=== PATIENT | female | born 1950 | race Caucasian/White ===

== ENCOUNTER → 2017-11-30 | Outpatient (CLI) | payer MEDICARE, BC ==
--- NOTE | 2017-12-01 10:01 | ECHOF ---
Referral Reason:R01.1 Cardiac murmer MEASUREMENTS -------- HEIGHT: 162.6 cm WEIGHT: 90.7 kg BP: IVSd: 1.3 cm (0.6 - 1.1) LVIDd: 2.7 cm (3.9 - 5.3) LVPWd: 1.4 cm (0.6 - 1.1) IVSs: 1.6 cm LVIDs: 1.5 cm LVPWs: 1.5 cm Ao Diam: 2.3 cm (2.0 - 3.7) AV Cusp: 1.1 cm (1.5 - 2.6) LA Diam: 3.0 cm (2.7 - 3.8) MV EXCURSION: 9.718 mm (> 18.000) MV EF SLOPE: 32 mm/s (70 - 150) EPSS: 0.5 cm MV E Rei: 0.85 m/s MV DecT: 181 ms MV A Rei: 0.78 m/s MV E/A Ratio: 1.10 AV maxP.55 mmHg AV meanP.96 mmHg RAP: 5.00 mmHg RVSP: 22.72 mmHg FINDINGS -------- Sinus rhythm. This was a technically difficult study with suboptimal apical views. The left ventricular size is normal. There is mild concentric left ventricular hypertrophy. Overa ll left ventricular systolic function is normal with, an EF between 55 - 60 %. The right ventricle is normal in size and function. The left atrium is normal in size. The right atrium is normal in size. Aortic valve is trileaflet and is moderately thickened. There is mild aortic stenosis present. Pe ak/mean gradient across the Aortic Valve is 19.55mmHg / 11.96mmHg. Mild mitral regurgitation is present. Mild tricuspid regurgitation present. The right ventricular systolic pressure, as measured by Doppl er, is 22.72mmHg. There is no pulmonic regurgitation present. The aortic root size is normal. There is no pericardial effusion. CONCLUSIONS -------- 1. Sinus rhythm. 2. This was a technically difficult study with suboptimal apical views. 3. There is mild concentric left ventricular hypertrophy. 4. Overall left ventricular systolic function is normal with, an EF between 55 - 60 %. 5. The left atrium is normal in size. 6. Aortic valve is trileaflet and is moderately thickened. 7. There is mild aortic stenosis present. 8. Peak/mean gradient across the Aortic Valve is 19.55mmHg / 11.96mmHg. 9. Mild mitral regurgitation is present. 10. Mild tricuspid regurgitation present. 11. The right ventricular systolic pressure, as measured by Doppler, is 22.72mmHg. 12. There is no pulmonic regurgitation present. 13. The aortic root size is normal. 14. There is no pericardial effusion. CUTTER GRINDER OPERATOR: Arti He RDCS
== END | disposition home or self-care (01) ==
LOC: RADECHMAIN 15:06
PROVIDERS: ATTEND Internal Medicine
DX: I08.1 Rheumatic disorders of both mitral and tricuspid valves (principal)
CPT/HCPCS: 93306

== ENCOUNTER → 2021-12-26 | Outpatient (CLI) | payer MEDICARE, BC ==
--- NOTE | 2021-12-27 14:14 | MM ---
Reason for exam: screening (asymptomatic). Last mammogram was performed 2 years and 8 months ago. History: Patient is postmenopausal and is nulliparous. Took hormonal contraceptives for 3 years. Physical Findings: A clinical breast exam by your physician is recommended on an annual basis and results should be correlated with mammographic findings. MG 3D Screening Mammo W/Cad Bilateral CC and MLO view(s) were taken. XCCL view(s) were taken of the right breast. Prior study comparison: April 27, 2019, bilateral MG 3d screening mammo w/cad. August 15, 2016, bilateral MG 3d screening mammo w/cad. There are scattered fibroglandular densities. No significant changes when compared with prior studies. ASSESSMENT: Benign, BI-RAD 2 RECOMMENDATION: Routine screening mammogram of both breasts in 1 year.
== END | disposition home or self-care (01) ==
LOC: RADMAMWWP 09:33
PROVIDERS: ATTEND Family Medicine
DX: Z12.31 Encounter for screening mammogram for malignant neoplasm of breast (principal); Z78.0 Asymptomatic menopausal state
CPT/HCPCS: 77063; 77067

== ENCOUNTER → 2022-08-04 | Outpatient (CLI) | payer MEDICARE, BC ==
--- NOTE | 2022-08-06 14:07 | CA ---
Transthoracic Echo Report Name: Suzan Ashraf Age: 71 Gender: F : 1950 Exam Date: 08/04/2022 11:40 Exam Location: [place] [facility] Ht (in): 62 Wt (lb): 140 Ordering Physician: Shyam Munson DO Attending/Referring Phys: Conservation Agent Susy Cabrera, LAMBERTO Procedure CPT: Indications: I35.0 aortic valve stenosis Cardiac Hx: Technical Quality: Fair Contrast 1: Total Dose (mL): Contrast 2: Total Dose (mL): MEASUREMENTS (Male / Female) Normal Values 2D ECHO LV Diastolic Diameter PLAX 3.9 cm 4.2 - 5.9 / 3.9 - 5.3 cm LV Systolic Diameter PLAX 2.3 cm IVS Diastolic Thickness 1.1 cm 0.6 - 1.0 / 0.6 - 0.9 cm LVPW Diastolic Thickness 1.4 cm 0.6 - 1.0 / 0.6 - 0.9 cm LV Relative Wall Thickness 0.6 RV Internal Dim ED PLAX 2.9 cm LA Systolic Diameter LX 3.0 cm 3.0 - 4.0 / 2.7 - 3.8 cm M-MODE Aortic Root Diameter MM 2.4 cm LA Systolic Diameter MM 3.1 cm LA Ao Ratio MM 1.3 MV E Point Septal Separation 0.1 cm AV Cusp Separation MM 1.2 cm DOPPLER AV Peak Velocity 326.5 cm/s AV Peak Gradient 42.6 mmHg AV Mean Velocity 244.9 cm/s AV Mean Gradient 28.6 mmHg AV Velocity Time Integral 72.8 cm LVOT Peak Velocity 102.9 cm/s LVOT Peak Gradient 4.2 mmHg MV Area PHT 3.6 cm??? Mitral E Point Velocity 61.1 cm/s Mitral A Point Velocity 97.6 cm/s Mitral E to A Ratio 0.6 MV Deceleration Time 213.2 ms FINDINGS Left Ventricle Left ventricular ejection fraction is estimated at 55 %. Mildly increased left ventricular wall thickness. Right Ventricle Normal right ventricular size and function. Right Atrium Normal right atrial size. Left Atrium Normal left atrial size. Mitral Valve Mitral valve thickened. Mild mitral regurgitation. Aortic Valve Moderate aortic stenosis with a peak velocity of 3.5 m/s, peak gradient 43 mmHg, mean gradient 29 mmHg, Tricuspid Valve Structurally normal tricuspid valve. Mild tricuspid regurgitation. Pulmonic Valve Structurally normal pulmonic valve. Pericardium Normal pericardium. Aorta Normal size aortic root and proximal ascending aorta. CONCLUSIONS Mild left ventricular wall thickness Mild mitral regurgitation Moderate aortic stenosis Mild tricuspid regurgitation No pericardial effusion Previewed by: Dr. Frank De Luna DO (Electronically Signed) Final Date: 05 August 2022 09:05
== END | disposition home or self-care (01) ==
LOC: RADECHMAIN 11:18
PROVIDERS: ATTEND Family Medicine
DX: I08.3 Combined rheumatic disorders of mitral, aortic and tricuspid valves (principal)
CPT/HCPCS: 93306

== ENCOUNTER → 2023-01-08 | Outpatient (CLI) | payer MEDICARE, BC ==
--- NOTE | 2023-01-08 11:46 | MM ---
Reason for Exam: Screening (asymptomatic). Last screening mammogram was performed 12 month(s) ago. Patient History: Menarche at age 15. Patient has no children. Postmenopausal. Patient used Hormonal Contraceptives for 3 years. Risk Values: Hanny 5 year model risk: 1.9%. NCI Lifetime model risk: 5.6%. Prior Study Comparison: 12/15/2014 Bilateral Screening Mammogram, [facility]. 08/15/2016 Bilateral Screening Mammogram, [facility]. 04/27/2019 Bilateral Screening Mammogram, [facility]. 12/26/2021 Bilateral Screening Mammogram, [facility]. Tissue Density: There are scattered fibroglandular densities. Findings: Analyzed By CAD. There is no suspicious group of microcalcifications or new suspicious mass in either breast. Overall Assessment: Negative, BI-RAD 1 Management: Screening Mammogram of both breasts in 1 year. A clinical breast exam by your physician is recommended on an annual basis and results should be correlated with mammographic findings. [facility] will attempt to contact patient to return for supplemental views and ultrasound if indicated. Electronically signed and approved by: Darrius Carvajal DO
== END | disposition home or self-care (01) ==
LOC: RADMAMWWP 11:00
PROVIDERS: ATTEND Family Medicine
DX: Z12.31 Encounter for screening mammogram for malignant neoplasm of breast (principal); Z78.0 Asymptomatic menopausal state
CPT/HCPCS: 77063; 77067

== ENCOUNTER → 2023-05-20 | Outpatient (CLI) | payer MEDICARE, BC | END | disposition home or self-care (01) | LOC: LABWHC1 08:23 | PROVIDERS: ATTEND Internal Medicine Interventional Cardiology | DX: E78.2 Mixed hyperlipidemia (principal) ==

== ENCOUNTER → 2023-05-20 | Outpatient (CLI) | payer MEDICARE, BC | END | disposition home or self-care (01) | LOC: LABWHC1 08:20 | PROVIDERS: ATTEND Internal Medicine Interventional Cardiology | DX: Z01.812 Encounter for preprocedural laboratory examination (principal); R94.39 Abnormal result of other cardiovascular function study ==

== ENCOUNTER → 2023-05-21 | Day surgery (SDC) | payer MEDICARE, BC ==
[2023-05-18 10:15] VITALS: BMI 29.7
[2023-05-20 09:44] LABS: HCT 48.6 % (34.0-46.0); HGB 16.4 gm/dL (11.4-16.0); MCH 33.6 pg (25.0-35.0); MCHC 33.8 g/dL (31.0-37.0); MCV 99.4 fL (80.0-100.0); Mean Platelet Volume 9.8; Platelet Count 132 k/uL (150-450); RBC 4.89 m/uL (3.80-5.40); RDW 12.9 % (11.5-15.5); WBC 4.1 k/uL (3.8-10.6)
[2023-05-20 10:05] LABS: ALT 34 U/L (4-34); African American GFR (CKD) >90 (>60 ml/min/1.73 sqM); Anion Gap 9 mmol/L; Blood Urea Nitrogen 12 mg/dL (7-17); Carbon Dioxide 22 mmol/L (22-30); Chloride 107 mmol/L (98-107); Non-African American GFR(CKD) >90 (>60 ml/min/1.73 sqM); Sodium 138 mmol/L (137-145)
[2023-05-20 10:07] LABS: AST 39 U/L (14-36); Potassium 4.4 mmol/L (3.5-5.1)
[2023-05-20 17:31] LABS: Chol/HDL Ratio 4.16 Ratio; LDL Cholesterol,Calculated 60.3 mg/dL (0.0-131.0)
[~2023-05-21] MED LIST: ALPRAZolam 0.25 MG TAB PO PRN; ALPRAZolam 0.5 MG TAB PO PRN; ASPIRIN 325 MG TAB PO STA; ASPIRIN 81 MG PO SCH; ATORVASTATIN 40 MG TAB PO SCH; ATORVASTATIN 80 MG TAB PO STA; BENZOCAINE SPRAY 1 CAN MUCOUS MEM ONE; BENZOCAINE SPRAY 1 CAN TOPICAL ONE; DAPAGLIFLOZIN PROPANEDIOL 5 MG TABLET PO SCH; EZETIMIBE 10 MG TAB PO SCH; HEPARIN SODIUM 1,000 UN/ML (10ML VL) IV ONE; HEPARIN SODIUM 1,000 UN/ML (10ML VL) ONE; HEPARIN SODIUM,PORCINE 10,000 UNIT in SODIUM CHLORIDE 0.9% 1,000 ML IRRIGATION PRN; HEPARIN SODIUM,PORCINE 2,500 UNIT in SODIUM CHLORIDE 0.9% 250 ML IRRIGATION PRN; INSULIN ASPART (NovoLOG) 100 UNIT/ML VIAL SQ ONE; IOPAMIDOL-300 100ML BTL INJ ONE; IOPAMIDOL-370 100ML BTL INJ ONE; IV FLUID CONTINUATION 1,000 ML IV ONE; LIDOCAINE 1% INJ 10MG/ML (20 ML MDV) ONE; LIDOCAINE 1% INJ 10MG/ML (5 ML VIAL-PF) SQ ONE; LOSARTAN 50 MG TAB PO SCH; MIDAZOLAM 2 MG/2 ML VIAL IVP ONE; NITROGLYCERIN SL TABS 0.4 MG TAB SUBLINGUAL PRN; RX INFO: IV CONTRAST WAS GIVEN 1 EACH MISC MISCELLANE PRN; SEMAGLUTIDE 0.25 MG/0.4 ML SQ SCH; SODIUM CHLORIDE 0.9% 1,000 ML IV SCH; SODIUM CHLORIDE 0.9% 1,000 ML in EMPTY BAG 1 BAG IV SCH; VERAPAMIL 2.5 MG/ML 2 ML AMP ONE; VERAPAMIL SYRINGE (5 MG/10 ML) INTRAARTER ONE; fentaNYL (PF) 50 MCG/ML 2 ML AMP IVP ONE; fentaNYL (PF) 50 MCG/ML 2 ML AMP ONE
[2023-05-21 07:53] VITALS: RESP 16; TEMP 97.6
[2023-05-21 08:01] LABS: Glucose,Whole Blood 200 mg/dL (70-110)
--- NOTE | 2023-05-21 09:48 | P.PCN ---
Date of Procedure: 05/21/23 Description of Procedure: Indication: Evaluation of aortic valve Procedure Description: After explaining the procedure to the patient, it's risk and complications, blood pressure, heart rate and O2 saturation were monitored. The throat was sprayed with Cetacaine. Patient received 2 mg intravenous Versed, 50 mcg intravenous fentanyl. The probe was introduced into the esophagus without difficulty. Images were obtained. Following that, the probe was removed. There was no immediate complication. Findings: Left atrial size is normal, left atrial appendage is normal. Left ventricular size and systolic function are normal. The mitral valve reveals mild calcifications. Tricuspid valve is normal. The aortic valve is a tricuspid valve, heavily calcified with reduced opening. Planimetry was suboptimal and showed a valve area of 0.4 cm. Descending thoracic aorta revealed mild atherosclerotic changes. No pericardial effusion was noted. Contrast bubble study revealed no evidence of shunting across the intra-atrial septum with Valsalva maneuver. Doppler: Pulse wave and color Doppler were obtained, an revealed mild to moderate tricuspid with mild mitral regurgitation. There was moderate to severe aortic regurgitation. The peak gradient across the aortic valve was 46 mmHg with a mean of 26 mmHg. It was no shunting by color Doppler study. Conclusion: 1. Normal left ventricle size and systolic function 2. Moderate to severe aortic stenosis and aortic regurgitation 3. Mild mitral regurgitation with mild to moderate tricuspid regurgitation and mild pulmonary hypertension 4. Mild atherosclerotic changes of the descending thoracic aorta 5. No shunting across the intra-atrial septum Sedation time 15 minutes
[2023-05-21 11:03] LABS: O2 Sat Blood Gas 76.9 %
[2023-05-21 11:04] LABS: O2 Sat Blood Gas 95.6 %
--- NOTE | 2023-05-21 11:08 | P.CARDCATH ---
Date of Procedure: 05/21/23 Description of Procedure: Cardiac Catheterization: The patient is a 72 year old female with known history of hypertension, hyperlipidemia and diabetes mellitus, mixed aortic valve disease who has been complaining of progressive dyspnea on exertion, had an abnormal MPI. Recommendations were made regarding cardiac catheterization, the risks and the complications were discussed with the patient who is in full understanding and agreement. Procedure Description: Patient was brought to forestry laborer in fasting semi-sedated state after receiving Fentanyl and Benadryl achieiving moderate conscious sedated state. Using Xylocaine Anesthesia and Seldinger technique, a 6-Zambian sheath was introduced in the right radial artery . Attempt to change the venous sheath in the right brachial area was unsuccessful because of poor placement. At that time using Xylocaine anesthesia in the Seldinger technique a 6-Zambian sheath was introduced in the right femoral vein. Subsequently, selective coronary angiography was performed using a 5-Zambian 3.5 bend Kimberly catheter. Multiple views of the coronary artery including hemiaxial views were obtained. The right Kimberly catheter was used to cross the aortic valve and LVEDP was calculated. Subsequently a 5-Zambian pigtail catheter was positioned in the ascending aorta and an OCCITAN view was performed. Subsequently a right heart catheterization was performed using Jordan-Eloina catheter, multiple pressure and samples were obtained. Following that, catheter and sheath were removed. Hemostasis was obtained with deployment of TR band . There was no immediate complication. Patient was returned to room in stable condition. Of note, the patient received a total of 3500 units of intravenous heparin as well as intra-arterial verapamil. Hemostasis was obtained in the right femoral vein by compression. Findings: Left main: This is a large size vessel, bifurcating into LAD and left circumflex, left main has no obstructive disease LAD: This is a last size vessel, giving rise to a large first diagonal branch following the diagonal branch takeoff there is a 90% stenosis with slow flow in the distal LAD with no evidence of high-grade stenosis distally Left circumflex: This is a large dominant vessel giving rise to 2 obtuse marginal branch the first one is very proximal, distally bifurcating into PDA and PLV. The left circumflex and its branches have no obstructive disease. RCA: This is a small nondominant vessel, giving rise to an acute marginal. The mid RCA has 50-60% plaque with no high-grade stenosis. Collaterals there is collaterals from the proximal RCA to the LAD Left Ventriculogram: Was not performed, aortogram performed in the OCCITAN view revealed a tricuspid aortic valve with 3-4+ aortic regurgitation Hemodynamics: Arterial saturation 96% pulmonary are saturation 77% right atrial 79%. Peak gradient across the aortic valve 53 mmHg with a mean of 47 and a valve area of 0.61 cm. Pulmonary artery systolic of 25 diastolic of 10 mean of 18 Cain primary He was pressure A wave of 11 and V wave of 12 with a mean of 90 mmHg right ventricle systolic pressure of 30 minutes of mercury and diastolic of 8 minutes to mercury right atrium A wave of 12 A wave A wave of 12 V wave of 8 with a mean of 4 minutes mercury left ventricle end-diastolic pressure 10-15 to mercury Conclusion: 1. Severe stenosis in the mid LAD with collateral from the RCA 2. Severe aortic stenosis with 3-4+ aortic regurgitation 3. Left dominance 4. Tricuspid aortic valve Recommendations: I have recommended to proceed with evaluation for possible aortic valve replacement and CABG versus PCI of the LAD and subsequently TAVR, we will continue the aggressive coronary risks modification and obtain consultation from the cardiovascular surgical team. The findings and the recommendations were discussed with the patient and the family and they were in full understanding and agreement. Duration of sedation is 45 minutes.
[2023-05-21 15:40] VITALS: BP 105/60; PULSE 65
== END | disposition home or self-care (01) ==
LOC: CATHCVL 07:09
PROVIDERS: ATTEND Internal Medicine Interventional Cardiology
DX: I08.3 Combined rheumatic disorders of mitral, aortic and tricuspid valves (principal); I70.0 Atherosclerosis of aorta; I27.20 Pulmonary hypertension, unspecified; I10 Essential (primary) hypertension; E78.5 Hyperlipidemia, unspecified; E11.9 Type 2 diabetes mellitus without complications; F17.210 Nicotine dependence, cigarettes, uncomplicated; Z79.899 Other long term (current) drug therapy
CPT/HCPCS: 93312; 93320; 93325; 93460; 93567; 80051; 80061; 85018; 82565; 82810; 84450; 84460; 84520; 85027; C1769 ×2; C1894 ×2; C1751; J2250; J2001; J3010; J1644; Q9967 ×2

== ENCOUNTER → 2023-07-01 | Outpatient (CLI) | payer MEDICARE, BC ==
--- NOTE | 2023-07-01 11:45 | US ---
EXAMINATION TYPE: US carotid duplex BILAT DATE OF EXAM: 07/01/2023 COMPARISON: NONE CLINICAL INDICATION: Female, 72 years old with history of Z12.31 screen mammo; dizzy ams TECHNIQUE: Carotid duplex ultrasound examination. Indirect Doppler criteria was utilized. FINDINGS: EXAM MEASUREMENTS: RIGHT: Peak Systolic Velocity (PSV) cm/sec ----- Right CCA: 52.6 ----- Right ICA: 130 ----- Right ECA: 80.6 ICA/CCA ratio: 2.4 RIGHT: End Diastole cm/sec ----- Right CCA: 7.2 ----- Right ICA: 32.6 ----- Right ECA: 0 LEFT: Peak Systolic Velocity (PSV) cm/sec ----- Left CCA: 58 ----- Left ICA: 104 ----- Left ECA: 102 ICA/CCA ratio: 1.8 LEFT: End Diastole cm/sec ----- Left CCA: 10.9 ----- Left ICA: 31.7 ----- Left ECA: 0 VERTEBRALS (direction of flow): Right Vertebral: Antegrade Left Vertebral: Antegrade Rhythm: Normal BARREL MARKER NOTES: Bilateral plaque causing turbulent flow. There is mild elevation of the left inter nal carotid artery velocity. IMPRESSION: 1. Moderate narrowing between 50 and 69% right internal carotid artery . 2. No significant flow-limiting stenosis left internal carotid artery. Criteria for Assigning % of Stenosis / Diameter reduction (Estimation based on the indirect measurements of the internal carotid artery velocities (ICA PSV). 1. Normal (no stenosis)=ICA PSV < 125 cm/s: ratio < 2.0: ICA EDV<40 cm/s. 2. Less than 50% stenosis=ICA PSV < 125 cm/s: ratio < 2.0: ICA EDV<40 cm/s. 3. 50 to 69% stenosis=ICA PSV of 125 to 230 cm/s: ration 2.0 ? 4.0: ICA EDV 40-100 cm/s. 4. Greater than 70% stenosis to near occlusion= ICA PSV > 230 cm/s: ratio > 4.0: ICA EDV > 100 cm/s. 5. Near occlusion= ICA PSV velocities may be low or undetectable: variable ratio and ICA EDV. 6. Total occlusion=unable to detect flow.
== END | disposition home or self-care (01) ==
LOC: RADUSWWP 10:54
PROVIDERS: ATTEND Family Medicine
DX: I65.21 Occlusion and stenosis of right carotid artery (principal); R41.3 Other amnesia; R42 Dizziness and giddiness; R41.82 Altered mental status, unspecified
CPT/HCPCS: 93880

== ENCOUNTER → 2023-07-23 | Outpatient (CLI) | payer MEDICARE, BC ==
[2023-07-23 09:58] LABS: Appearance,Urine Clear (Clear); Bilirubin,Urine Negative (Negative); Blood,Urine Negative (Negative); Color,Urine Colorless; Glucose,Urine (UA) 4+ (Negative); Leukocyte Esterase,Urine Negative (Negative); Nitrite,Urine Negative (Negative); Protein,Urine Negative (Negative); Specific Gravity,Urine 1.036 (1.001-1.035); Urobilinogen,Urine <2.0 mg/dL (<2.0)
[2023-07-23 10:02] LABS: INR 0.9 (<1.2); Prothrombin Time 9.7 sec (9.0-12.0)
[2023-07-23 10:03] LABS: Partial Thromboplastin Time 24.3 sec (22.0-30.0)
[2023-07-23 10:07] LABS: ALT 29 U/L (4-34); AST 33 U/L (14-36); African American GFR (CKD) >90 (>60 ml/min/1.73 sqM); Albumin 4.2 g/dL (3.5-5.0); Albumin/Globulin Ratio 1.6; Alkaline Phosphatase 78 U/L (38-126); Anion Gap 12 mmol/L; Blood Urea Nitrogen 13 mg/dL (7-17); Calcium 9.4 mg/dL (8.4-10.2); Carbon Dioxide 23 mmol/L (22-30); Chloride 103 mmol/L (98-107); Globulin 2.7 g/dL; Glucose 166 mg/dL (74-99); Non-African American GFR(CKD) 86 (>60 ml/min/1.73 sqM); Potassium 4.4 mmol/L (3.5-5.1); Sodium 138 mmol/L (137-145); Total Bilirubin 0.7 mg/dL (0.2-1.3); Total Protein 6.9 g/dL (6.3-8.2)
[2023-07-23 10:16] LABS: NT-Pro-B-Type Natriuretic Pept 51 pg/mL
[2023-07-23 10:44] LABS: Magnesium 1.9 mg/dL (1.6-2.3)
[2023-07-23 11:08] LABS: Ketones,Urine 3+ (Negative)
--- NOTE | 2023-07-23 11:50 | CT ---
EXAMINATION TYPE: CT TAVR Planning DATE OF EXAM: 07/23/2023 HISTORY: TAVR planning. CT DLP: 1488.6 mGycm Automated Exposure Control for Dose Reduction was Utilized. CONTRAST: CT scan of the chest, abdomen and pelvis is performed with IV Contrast, patient injected with 125ml m L of Isovue 370. COMPARISON: None TECHNIQUE: Helical imaging obtained through the chest, abdomen and pelvis during arterial phase debby elly administration of radiographic contrast intravenously. FINDINGS: See report from Luv Rink regarding preprocedural planning CHEST: Lower Neck and Thyroid: No significant findings Lungs: No significant findings Central Airway: No significant findings Pleura: No significant findings Pulmonary Arteries: No significant findings Heart and Pericardium: Heart is mildly prominent size. No pericardial effusion. Lymph Nodes: No significant findings Mediastinum & Esophagus: No significant findings ABDOMEN/PELVIS: Please note arterial phase of the imaging limits detailed evaluation of the solid abdominal organs. Liver: No significant findings Spleen: No significant findings Kidneys: No significant findings Adrenal Glands: No significant findings Pancreas: No significant findings Gallbladder: No significant findings Bowel and Mesentery: No significant findings Lymph Nodes: No significant findings Urinary Bladder: No significant findings Pelvic Organs: No significant findings Other: Mild atherosclerotic plaque of the abdominal aorta and its branches. Mild stenosis at the orig in of the celiac axis and SMA secondary to calcified plaque. Other Lines/Tubes/Devices/Hardware: None IMPRESSION: No acute process.
[2023-07-23 20:56] LABS: Chol/HDL Ratio 3.82 Ratio; LDL Cholesterol,Calculated 41.9 mg/dL (0.0-131.0)
[2023-07-23 21:17] LABS: Basophils # (A) 0.03 X 10*3/uL (0.00-0.10); Basophils % (A) 0.6 %; Eosinophils # (A) 0.04 X 10*3/uL (0.04-0.35); Eosinophils % (A) 0.8 %; HCT 47.4 % (37.2-46.3); HGB 15.2 d/dL (12.0-15.0); Lymphocytes % (A) 28.4 %; MCH 32.5 pg (27.0-32.0); MCHC 32.1 d/dL (32.0-37.0); MCV 101.3 FL (80.0-97.0); Mean Platelet Volume 12.3 FL (9.5-12.2); Monocytes # (A) 0.47 X 10*3/uL (0.20-1.00); Monocytes % (A) 9.5 %; NRBC Per 100 WBC 0 X 10*3/uL (0.00-0.01); Neutrophils # (A) 2.98 X 10*3/uL (1.80-7.70); Neutrophils % (A) 60.5 %; Platelet Count 175 X 10*3/uL (140-440); RBC 4.68 X 10*6/uL (4.10-5.20); RDW 12.3 % (11.5-14.5); WBC 4.93 X 10*3/uL (4.50-10.00)
[2023-07-23 22:32] LABS: Hepatitis A Antibody IgM Nonreactive; Hepatitis B Core IgM Nonreactive; Hepatitis B Surface Antigen Nonreactive; Hepatitis C IgG Antibody Nonreactive
== END | disposition home or self-care (01) ==
LOC: LABWHC1 09:01
PROVIDERS: ATTEND Thoracic Surgery (Cardiothoracic Vascular Surgery)
DX: Z01.818 Encounter for other preprocedural examination (principal); I35.0 Nonrheumatic aortic (valve) stenosis; I35.1 Nonrheumatic aortic (valve) insufficiency; E11.9 Type 2 diabetes mellitus without complications; E87.8 Other disorders of electrolyte and fluid balance, not elsewhere classified; N28.9 Disorder of kidney and ureter, unspecified; E78.5 Hyperlipidemia, unspecified; I45.4 Nonspecific intraventricular block; E07.9 Disorder of thyroid, unspecified; Z79.899 Other long term (current) drug therapy; Z79.01 Long term (current) use of anticoagulants; R35.0 Frequency of micturition; R58 Hemorrhage, not elsewhere classified; R94.31 Abnormal electrocardiogram [ECG] [EKG]
CPT/HCPCS: 83880; 80061; 80053; 80074; 84443; 83735; 85025; 85610; 85730; 81003; 87086; 83036; 71275; 36415 ×2; 74174; 93005; Q9967

== ENCOUNTER 2023-08-05 06:09 | Day surgery (SDC) | payer MEDICARE, BC ==
[~2023-08-05 06:09] MED LIST changes: -ASPIRIN 325 MG TAB PO STA; -ASPIRIN 81 MG PO SCH; -ATORVASTATIN 40 MG TAB PO SCH; -ATORVASTATIN 80 MG TAB PO STA; -BENZOCAINE SPRAY 1 CAN MUCOUS MEM ONE; -BENZOCAINE SPRAY 1 CAN TOPICAL ONE; -DAPAGLIFLOZIN PROPANEDIOL 5 MG TABLET PO SCH; -EZETIMIBE 10 MG TAB PO SCH; -HEPARIN SODIUM 1,000 UN/ML (10ML VL) IV ONE; -HEPARIN SODIUM 1,000 UN/ML (10ML VL) ONE; +HEPARIN SODIUM,PORCINE (1 ML) 2,500 UNIT in SODIUM CHLORIDE 0.9% 250 ML IRRIGATION PRN; -HEPARIN SODIUM,PORCINE 10,000 UNIT in SODIUM CHLORIDE 0.9% 1,000 ML IRRIGATION PRN; -HEPARIN SODIUM,PORCINE 2,500 UNIT in SODIUM CHLORIDE 0.9% 250 ML IRRIGATION PRN; -INSULIN ASPART (NovoLOG) 100 UNIT/ML VIAL SQ ONE; -IOPAMIDOL-300 100ML BTL INJ ONE; -IOPAMIDOL-370 100ML BTL INJ ONE; -IV FLUID CONTINUATION 1,000 ML IV ONE; -LIDOCAINE 1% INJ 10MG/ML (20 ML MDV) ONE; -LIDOCAINE 1% INJ 10MG/ML (5 ML VIAL-PF) SQ ONE; -LOSARTAN 50 MG TAB PO SCH; -MIDAZOLAM 2 MG/2 ML VIAL IVP ONE; -RX INFO: IV CONTRAST WAS GIVEN 1 EACH MISC MISCELLANE PRN; -SEMAGLUTIDE 0.25 MG/0.4 ML SQ SCH; -SODIUM CHLORIDE 0.9% 1,000 ML IV SCH; -VERAPAMIL 2.5 MG/ML 2 ML AMP ONE; -VERAPAMIL SYRINGE (5 MG/10 ML) INTRAARTER ONE; -fentaNYL (PF) 50 MCG/ML 2 ML AMP IVP ONE; -fentaNYL (PF) 50 MCG/ML 2 ML AMP ONE
[2023-08-05 06:38] LABS: Glucose,Whole Blood 188 mg/dL (70-110)
[2023-08-05 06:46] VITALS: RESP 16; TEMP 97
[2023-08-05] MEDS ORDERED: HEPARIN SODIUM,PORCINE 10,000 UNIT in SODIUM CHLORIDE 0.9% 1,000 ML IRRIGATION PRN (07:00)
[2023-08-05] MEDS ORDERED: ATORVASTATIN 80 MG TAB PO ONE (07:00)
[2023-08-05] MEDS ORDERED: ASPIRIN 325 MG TAB PO ONE (07:00)
[2023-08-05] MEDS ORDERED: fentaNYL (PF) 50 MCG/ML 2 ML AMP IVP ONE (07:53)
[2023-08-05] MEDS ORDERED: LIDOCAINE 1% INJ 10MG/ML (20 ML MDV) SQ ONE (07:53)
[2023-08-05] MEDS ORDERED: VERAPAMIL SYRINGE (5 MG/10 ML) INTRAARTER ONE (07:54)
[2023-08-05] MEDS ORDERED: HEPARIN SODIUM 1,000 UN/ML (10ML VL) IV ONE (07:58)
[2023-08-05] MEDS ORDERED: CLOPIDOGREL 75 MG TAB PO ONE (08:02)
[2023-08-05] MEDS ORDERED: NITROGLYCERIN 1000MCG/10ML SYRINGE INTRACORON ONE (08:16)
[2023-08-05] MEDS ORDERED: IOPAMIDOL-370 200ML BTL INJ ONE (08:34)
[2023-08-05] MEDS ORDERED: RX INFO: IV CONTRAST WAS GIVEN 1 EACH MISC MISCELLANE PRN (08:44)
[2023-08-05] MEDS ORDERED: MAG HYDROX/AL HYDROX/SIMETH 30 ML CUP PO PRN (08:44)
[2023-08-05] MEDS ORDERED: ATROPINE SULFATE 0.1 MG/ML 10ML SYRINGE IV PRN (08:44)
[2023-08-05] MEDS ORDERED: ZOLPIDEM 5 MG TAB PO PRN (08:44)
[2023-08-05] MEDS ORDERED: NITROGLYCERIN SL TABS 0.4 MG TAB SUBLINGUAL PRN (08:44)
[2023-08-05] MEDS ORDERED: SEMAGLUTIDE 0.25 MG/0.4 ML SQ SCH (08:45)
[2023-08-05] MEDS ORDERED: SODIUM CHLORIDE 0.9% 1,000 ML in EMPTY BAG 1 BAG IV SCH (08:45)
--- NOTE | 2023-08-05 08:53 | P.CARDCATH ---
Date of Procedure: 08/05/23 Description of Procedure: PERCUTANEOUS TRANSLUMINAL CORONARY ANGIOPLASTY CLINICAL INFORMATION: The patient is a 19-year-old female with known history of hypertension, hyperlipidemia, diabetes with mixed aortic valve disease who has been complaining of progressive dyspnea and underwent cardiac catheterization that showed significant obstructive disease in the mid LAD. She was evaluated in the valve clinic and recommendations were made regarding PCI of the LAD and subsequent evaluation of the aortic valve. . Recommendations were made regarding angioplasty and stenting. The procedure as well as the risks and the complications were discussed with the patient who was in full understanding and agreement. PROCEDURE: The patient was brought to the photo lab specialist in the fasting and semi- sedated state, after receiving fentanyl and Benadryl. Using Xylocaine anesthesia and a modified Seldinger technique a 6-Italian sheath was introduced in the right radial artery. A 6 Italian CLS 3.5 guiding catheter was introduced into the system. After cannulating the left main, a 0.014 BMW wire was advanced across the lesion and positioned distally. Following that a 2.5 x 12 mm Treck balloon was advanced and inflated at 8 atmosphere. Subsequently a TradeBeam eye IVUS catheter was introduced and images were obtained. Following that a 2.75 x 15 mm Xience ant point stent was deployed. It was dilated at 16. After removing the balloon a 2.5 x 12 mm Xience ant point stent was deployed distal to the first one at 14 ilsa. Repeat intravascular ultrasound imaging was performed and subsequently a 3.0 x 12 mm NC Treck was advanced and inflations in the proximal stent at 10 ilsa were done. After the last inflation, after appropriate wait, the balloon and the guidewire were withdrawn back into the guiding catheter. Images were obtained and repeated. Those images reveal stable successful stenting. At that point, the guiding catheter, the balloon, and guidewire were removed. The sheath was removed. Hemostasis was obtained with deployment of a vascular wrist band. There were no immediate complications. The patient was returned to the room in stable condition. Of note, the patient received 5000 units of heparin as well as Plavix. His ACT was followed. There was no immediate complications. She had no significant chest discomfort or EKG changes. RESULTS: Successful stenting of the mid LAD with reduction of stenosis from 90 % to 0 % with intravascular ultrasound imaging. RECOMMENDATIONS: The patient will be continued on aspirin and Plavix for 6 months in addition to aggressive coronary risks modifications and attempting to maintain an LDL below 70 mg/dL. She'll be followed closely regarding her aortic valve. The findings and recommendations were discussed with the patient and the family, they are in full understanding and agreement. Duration of sedation: 38 minutes
[2023-08-05] MEDS ORDERED: ASPIRIN 81 MG PO SCH (09:00)
[2023-08-05] MEDS ORDERED: LOSARTAN 50 MG TAB PO SCH (09:00)
[2023-08-05] MEDS ORDERED: ESCITALOPRAM 20 MG TAB PO SCH (09:00)
[2023-08-05] MEDS ORDERED: ATORVASTATIN 40 MG TAB PO SCH (09:00)
[2023-08-05] MEDS ORDERED: DAPAGLIFLOZIN PROPANEDIOL 5 MG TABLET PO SCH (09:00)
[2023-08-05] MEDS ORDERED: EZETIMIBE 10 MG TAB PO SCH (09:00)
[2023-08-05] MEDS ORDERED: ARIPiprazole 2 MG TAB PO SCH (09:00)
[2023-08-05 11:53] VITALS: PULSE 66
[2023-08-05 13:08] VITALS: BP 108/60
[2023-08-06] MEDS ORDERED: CLOPIDOGREL 75 MG TAB PO SCH (09:00)
== END 2023-08-05 13:07 | disposition home or self-care (01) ==
LOC: CATHCVL 06:09
PROVIDERS: ATTEND Internal Medicine Interventional Cardiology
DX: I25.10 Atherosclerotic heart disease of native coronary artery without angina pectoris (principal); I10 Essential (primary) hypertension; E78.5 Hyperlipidemia, unspecified; E11.9 Type 2 diabetes mellitus without complications; I35.0 Nonrheumatic aortic (valve) stenosis; Z79.84 Long term (current) use of oral hypoglycemic drugs; Z79.899 Other long term (current) drug therapy; Z79.82 Long term (current) use of aspirin
CPT/HCPCS: 92978; C9600; C1769 ×3; C1887; C1894; C1725 ×2; C1753; C1874 ×2; J2001; J3010; J1644; Q9967; J2305

== ENCOUNTER → 2023-08-06 | Outpatient (CLI) | payer MEDICARE, BC | END | disposition home or self-care (01) | LOC: LABWHC1 12:05 | PROVIDERS: ATTEND Internal Medicine Interventional Cardiology | DX: I25.10 Atherosclerotic heart disease of native coronary artery without angina pectoris (principal) | CPT/HCPCS: 36415; 82565 ==

== ENCOUNTER → 2024-01-12 | Outpatient (CLI) | payer MEDICARE, BC ==
--- NOTE | 2024-01-13 10:11 | MM ---
Reason for Exam: Screening (asymptomatic). Last screening mammogram was performed 12 month(s) ago. Patient History: Menarche at age 15. Patient has no children. Postmenopausal. Patient used Hormonal Contraceptives for 3 years. Risk Values: Hanny 5 year model risk: 1.9%. NCI Lifetime model risk: 5.4%. Prior Study Comparison: 04/27/2019 Bilateral Screening Mammogram, [facility]. 12/26/2021 Bilateral Screening Mammogram, [facility]. 01/08/2023 Bilateral MG 3D screening mammo w/cad, [facility]. Tissue Density: The breasts are heterogeneously dense, which may obscure small masses. Findings: Analyzed By CAD. There is no suspicious group of microcalcifications or new suspicious mass in either breast. Benign-appearing calcifications. Chronic nodularity upper outer quadrant right breast. Overall Assessment: Benign, BI-RAD 2 Management: Screening Mammogram of both breasts in 1 year. . Patient should continue monthly self-breast exams. A clinical breast exam by your physician is recommended on an annual basis. This exam should not preclude additional follow-up of suspicious palpable abnormalities. Note on Hanny scores and lifetime risk: 1. A Hanny score greater than 3% is considered moderate risk. If this is the case, consider specialist referral to assess eligibility for a risk reducing agent. 2. If overall lifetime risk for the development of breast cancer is 20% or higher, the patient may qualify for future screening with alternating mammogram and breast MRI. Electronically signed and approved by: Morgan Sullivan M.D. Radiologis
== END | disposition home or self-care (01) ==
LOC: RADMAMWWP 10:52
PROVIDERS: ATTEND Family Medicine
DX: Z12.31 Encounter for screening mammogram for malignant neoplasm of breast (principal); Z78.0 Asymptomatic menopausal state
CPT/HCPCS: 77063; 77067